=== PATIENT | female | born 1970 | race Caucasian/White ===

== ENCOUNTER 2017-06-28 17:37 | Emergency (ER) | payer OTHER ==
[2017-06-28] MEDS ORDERED: Ketorolac 60 MG/2 ML SDV IM ONE (17:59)
--- NOTE | 2017-06-28 18:05 | EDM.PDOC ---
ED HPI GENERAL MEDICAL PROBLEM - General Chief Complaint: Upper Extremity Injury/Pain Stated Complaint: RIGHT HAND PAIN Time Seen by Provider: 06/28/17 18:00 Source of Information: Reports: Patient History Limitations: Reports: No Limitations - History of Present Illness INITIAL COMMENTS - FREE TEXT/NARRATIVE: HISTORY AND PHYSICAL: [47-year-old female with complaints of right hand pain] History of Present Illness: [Patient presents to the emergency room today with complaints of right hand pain. States that a month ago she was "flinging" her hand up and hit the window , since that time noticed some discomfort but did not bother her enough to be evaluated by a healthcare provider. Today she was moving her hand and hit it again, causing more pain and discomfort with some swelling at the right proximal second and third knuckle. States she has swelling and pressure which she feels discomfort when grasping and radiating up into her forearm, has not taking any iqel-ktc-hiothla products for discomfort. No previous injury to the affected extremity] Review of Systems: As per history of present illness and below otherwise all systems reviewed and negative. Past medical history: As per history of present illness and as reviewed below otherwise noncontributory. Surgical history: As per history of present illness and as reviewed below otherwise noncontributory. Social history: No reported history of drug or alcohol abuse. Family history: As per history of present illness and as reviewed below otherwise noncontributory. Physical exam: Nontoxic appearing 47-year-old female. Speaks in full sentences. His questions appropriately. HEENT: Atraumatic, normocehpalic, pupils reactive, negative for conjunctival pallor or scleral icterus, mucous membranes moist, throat clear, neck supple, nontender, trachea midline. Lungs: Clear to auscultation, breath sounds equal bilaterally, chest non tender. Heart: S1S2, regular, negative for clicks, rubs, or JVD. Abdomen: Soft, nondistended, nontender. Negative for masses or hepatossplenmegaly. Negative for costovertebral tenderness. Pelvis: Stable nontender. Genitourinary: Deferred. Rectal: Deferred Extremities: Redness and swelling noted to the right proximal second and third knuckle. Strong radial pulses bilaterally. Capillary refill less than 3 seconds. Full range of motion of the fingers, wrist, forearm, elbow of the affected extremity. Sensation is intact. Neurovascular unremarkable. Neuro: Awake, alert, oriented. Cranial nerves II through XII unremarkable. Cerebellum unremarkable. Motor and sensory unremarkable throughout. Exam nonfocal. Diagnostics: [X-ray of the right hand] Therapeutics: [60mg Toradol IM] Impression: [Contusion] Plan: []Splint to add protection and stabilize Elevate and ice Gghu-moi-wqdmych NSAIDs today with Tylenol Follow-up with your primary care provider next week if not improving Definitive disposition and diagnosis as appropriate pending reevaluation and review of above. Onset: Sudden, Other (Initial injury occurred one month ago. Reinjured today prior to arrival.) Onset Date: 06/28/17 Location: Reports: Lower Extremity, Right Worsens with: Reports: Movement Associated Symptoms: Reports: No Other Symptoms Right Hand Pain Score (Numeric/FACES): 7 - Related Data Allergies Allergy/AdvReac Type Severity Reaction Status Date / Time No Known Allergies Allergy Verified 06/28/17 17:48 Home Meds: Home Meds ALPRAZolam [Xanax] 0.5 mg PO BID 06/28/17 [History] Amitriptyline [Elavil] 25 mg PO BEDTIME 06/28/17 [History] Levothyroxine 137 mcg PO ACBREAKFAST 06/28/17 [History] Past Medical History HEENT History: Reports: None Cardiovascular History: Reports: None Respiratory History: Reports: None Gastrointestinal History: Reports: None Genitourinary History: Reports: None CONSULTING INTERN History: Reports: None Musculoskeletal History: Reports: None Neurological History: Reports: None Psychiatric History: Reports: None Endocrine/Metabolic History: Reports: None Dermatologic History: Reports: None - Infectious Disease History Infectious Disease History: Reports: Chicken Pox - Past Surgical History HEENT Surgical History: Reports: None Cardiovascular Surgical History: Reports: None Respiratory Surgical History: Reports: None GI Surgical History: Reports: Cholecystectomy Female Surgical History: Reports: Hysterectomy Endocrine Surgical History: Reports: None Neurological Surgical History: Reports: None Musculoskeletal Surgical History: Reports: None Dermatological Surgical History: Reports: None Social & Family History - Tobacco Use Smoking Status *Q: Never Smoker - Caffeine Use Caffeine Use: Reports: Energy Drinks, Tea - Recreational Drug Use Recreational Drug Use: No Review of Systems - Review of Systems Review Of Systems: ROS reveals no pertinent complaints other than HPI. ED EXAM, GENERAL - Physical Exam Exam: See Below (See history of present illness) Course - Vital Signs Last Recorded V/S: Last Vital Signs Temp 36.6 C 06/28/17 17:49 Pulse 98 06/28/17 17:49 Resp 18 06/28/17 17:49 BP 137/84 06/28/17 17:49 Pulse Ox 96 06/28/17 17:49 - Orders/Labs/Meds Orders: Active Orders 24 hr Category Date Time Status Splinting [RC] ASDIRECTED Care 06/28/17 19:27 Ordered Hand 2V Rt [CR] Stat Exams 06/28/17 17:59 Taken Meds: Medications Discontinued Medications Generic Name Dose Route Start Last Admin Trade Name Freq PRN Reason Stop Dose Admin Ketorolac Tromethamine 60 mg 06/28/17 17:59 06/28/17 18:03 Toradol IM 06/28/17 18:00 60 mg ONETIME ONE Administration Departure - Departure Time of Disposition: 19:28 Disposition: Home, Self-Care 01 Condition: Good Clinical Impression: Contusion Qualifiers: Encounter type: initial encounter Contusion area: hand - Discharge Information Instructions: Cast or Splint Care, Gxqd-du-Lozm Forms: ED Department Discharge Additional Instructions: The following information is given to patients seen in the emergency department who are being discharged to home. This information is to outline your options for follow-up care. We provide all patients seen in our emergency department with a follow-up referral. The need for follow-up, as well as the timing and circumstances, are variable depending upon the specifics of your emergency department visit. If you don't have a primary care physician on staff, we will provide you with a referral. We always advise you to contact your personal physician following an emergency department visit to inform them of the circumstance of the visit and for follow-up with them and/or the need for any referrals to a consulting specialist. The emergency department will also refer you to a specialist when appropriate. This referral assures that you have the opportunity for followup care with a specialist. All of these measure are taken in an effort to provide you with optimal care, which includes your followup. Under all circumstances we always encourage you to contact your private physician who remains a resource for coordinating your care. When calling for followup care, please make the office aware that this follow-up is from your recent emergency room visit. If for any reason you are refused follow-up, please contact the [facility] emergency department at and asked to speak to the emergency department charge nurse. Splint has been applied for comfort measures and immobilization Follow-up with your primary care provider next week Alternate ibuprofen and Tylenol for discomfort every 3 hours Any worsening of symptoms please return for further evaluation - My Orders Last 24 Hours: My Active Orders 06/28/17 17:59 Hand 2V Rt [CR] Stat 06/28/17 19:27 Splinting [RC] ASDIRECTED - Assessment/Plan Last 24 Hours: My Active Orders 06/28/17 17:59 Hand 2V Rt [CR] Stat 06/28/17 19:27 Splinting [RC] ASDIRECTED
[2017-06-28 20:04] VITALS: BP 120/67
--- NOTE | 2017-06-29 11:48 | CR ---
EXAM DATE: 06/28/17 PATIENT'S AGE: 47 Patient: SHERLEY FERNANDEZ Facility: [place], [place] Site . Site : [id number] Study: XRay Extremity Hand [id number]/15/2017 6:39:51 PM Ordering Physician: Doctor Mejia Final Report: HISTORY: Injury, swelling. FINDINGS/IMPRESSION: Two views of the right hand demonstrate normal alignment. No fracture or dislocation identified. Dictated by Stefani Anaya MD @ 06/28/2017 7:18:24 PM Dictated by: Stefani Anaya MD @ 06/28/2017 19:18:30 (Electronic Signature) Report Signed by Proxy. [facility]ITATION HOSPITALFelicity
== END 2017-06-28 19:46 | disposition home or self-care (01) ==
LOC: MW.ED 17:37
DX: S60.221A Contusion of right hand, initial encounter (principal); Z90.49 Acquired absence of other specified parts of digestive tract; Z90.710 Acquired absence of both cervix and uterus; W22.8XXA Striking against or struck by other objects, initial encounter
CPT/HCPCS: 29125; 73120; 96372; 99283; J1885

== ENCOUNTER 2021-11-10 14:09 | Emergency (ER) | payer BC, OTHER ==
--- NOTE | 2021-11-10 14:33 | EDM.PDOC ---
ED HPI GENERAL MEDICAL PROBLEM - General Chief Complaint: Lower Extremity Injury/Pain Stated Complaint: INJURY LEFT FOOT Time Seen by Provider: 11/10/21 14:14 Source of Information: Reports: Patient History Limitations: Reports: No Limitations - History of Present Illness INITIAL COMMENTS - FREE TEXT/NARRATIVE: HISTORY AND PHYSICAL: History of present illness: Patient is a 51-year-old female who presents to the emergency room with complaints of left lateral ankle and dorsal foot pain. Patient was getting out of her pickup truck when she slipped on the ice and fell. Does have pain with weightbearing and touch. Did not hit her head or have any loss of consciousness. Denies any other extremity involvement. Offers no systemic complaints. Review of systems: As per history of present illness and below otherwise all systems reviewed and negative. Past medical history: As per history of present illness and as reviewed below otherwise noncontributory. Surgical history: As per history of present illness and as reviewed below otherwise noncontributory. Social history: See social history for further information Family history: As per history of present illness and as reviewed below otherwise noncontributory. Physical exam: General: Well developed and well nourished 51-year-old female. Alert and orientated x 3. Nontoxic in appearance and in no acute distress. Vital signs are stable and have been reviewed by me. Nursing notes were reviewed. HEENT: Atraumatic, normocephalic, pupils equal and reactive bilaterally, negative for conjunctival pallor or scleral icterus, mucous membranes moist, TMs normal bilaterally, throat clear, neck supple, nontender, trachea midline. No drooling or trismus noted. No meningeal signs. No hot potato voice noted. Lungs: Clear to auscultation bilaterally. No wheezes, rales, or rhonchi. Chest nontender. Normal work of breathing, no accessory muscles used. Heart: S1S2, regular rate and rhythm without overt murmur, gallops, or rubs. No JVD. No peripheral edema Abdomen: Soft, nondistended, nontender. C-spine/Back: No pinpoint vertebral tenderness upon palpation. No crepitus, step-offs or obvious deformities. Patient is ambulatory into the emergency room without difficulty or deficit. Able to rock back on heels and walk on toes. Denies any urinary or fecal incontinence. Denies any numbness, tingling or saddle paresthesia. No concerns of serious infection, fracture or cord compression, or cauda equina syndrome. Deep tendon reflexes brisk bilaterally. Skin: Intact, warm, dry. No lesions or rashes noted. Hematologic: No petechiae or purpra. Mucosa appropriate color and normal nail bed color and refill. Extremities: Pain with palpation of the left lateral malleolus with soft tissue swelling extending into the anterior dorsal foot. Strong pedal and pretibial pulse. Moves all extremities per self without difficulty or deficits, negative for cords or calf pain. Cap refill less than 3 seconds. +CMS. Neurovascular unremarkable. Neuro: Awake, alert, oriented. Cranial nerves II through XII unremarkable. Cerebellum unremarkable. Motor and sensory unremarkable throughout. Exam nonfocal. Psychiatric: Mood and affect are appropriate. Normal thought process. Answering questions appropriately. Please note that the patient was seen and evaluated during the 2019 SARS-CoV-2 novel coronavirus pandemic period. Community viral transmission is ongoing at time of this encounter and the emergency department is operating under pandemic response procedures. Medical Decision Making: Patient is a 51-year-old female who presents to the emergency room with complaints of left foot and ankle pain post fall. She does have tenderness of the left lateral malleolus with mild soft tissue swelling. Patient has strong pedal pulses with good CMS and range of motion. We will obtain an x-ray. Suspected small avulsion fracture fragment along the lateral and posterior aspect of the cuboid with adjacent soft tissue swelling. Patient placed in a cam walker boot and provided with crutches. Patient to wear this until she is able to follow-up with the spring internship in the next week. I have talked with the patient about today's findings, in addition to providing specific details for plan of care. Reassessment at the time of disposition demonstrates that the patient is in no acute distress. Patient given Dr. Handley's foot and ankle clinic phone number for close follow-up. The patient is stable for discharge, counseling was provided and we discussed in great detail signs and symptoms that would prompt them to return to the Emergency Department. Medication, follow up and supportive care measures were reviewed and discussed. Voices understanding and is agreeable to plan of care. Denies any further questions or concerns at this time. Diagnostics: X-ray Therapeutics: CAM Walker boot and crutches Prescription: [place] No. 20 Impression: Cuboid fracture, left Plan: 1. You were evaluated today on an emergent basis. Your x-ray shows a small avulsion fracture of the cubiod bone. Rest, ice, elevate the extremity as able. Use the crutches and CAM walker boot to be nonweightbearing until you follow up with podiatry. 2. You can alternate Tylenol and ibuprofen as needed for pain and fever management. [place] for moderate to severe pain. This medication may cause drowsiness so do not take it while driving or needing to be functioning outside of the house. 3. We encourage you to follow up with your primary care provider and/or recommended specialist in the next few days for re-evaluation and further care/management. 4. If your symptoms should worsen, new symptoms develop or any of the signs and symptoms we discussed should arise please return to the emergency room or call 911 (if needed). Definitive disposition and diagnosis as appropriate pending reevaluation and review of above. Left Ankle Pain Score (Numeric/FACES): 9 - Related Data Allergies Allergy/AdvReac Type Severity Reaction Status Date / Time meloxicam Allergy Facial Verified 11/10/21 14:20 Swelling Home Meds: Home Meds ALPRAZolam [Xanax] 0.5 mg PO BID 06/28/17 [History] Levothyroxine 137 mcg PO ACBREAKFAST 06/28/17 [History] Celecoxib [CeleBREX] 100 mg PO DAILY 11/10/21 [History] FLUoxetine [PROzac] 40 mg PO DAILY 11/10/21 [History] Gabapentin [Neurontin] 300 mg PO DAILY 11/10/21 [History] Hydrocodone/Acetaminophen [HYDROcodone-Acetaminophen 5-325 MG] 1 - 2 tab PO Q4HR PRN #20 tablet 11/10/21 [Rx] Past Medical History HEENT History: Reports: None Cardiovascular History: Reports: None Respiratory History: Reports: None Gastrointestinal History: Reports: None Genitourinary History: Reports: None MEDICAL STAFF SERVICES COORDINATOR History: Reports: None Musculoskeletal History: Reports: None Neurological History: Reports: None Psychiatric History: Reports: None Endocrine/Metabolic History: Reports: None Dermatologic History: Reports: None - Infectious Disease History Infectious Disease History: Reports: Chicken Pox - Past Surgical History HEENT Surgical History: Reports: None Cardiovascular Surgical History: Reports: None Respiratory Surgical History: Reports: None GI Surgical History: Reports: Cholecystectomy Female Surgical History: Reports: Hysterectomy Endocrine Surgical History: Reports: None Neurological Surgical History: Reports: None Musculoskeletal Surgical History: Reports: None Dermatological Surgical History: Reports: None Social & Family History - Family History Family Medical History: No Pertinent Family History - Tobacco Use Tobacco Use Status *Q: Current Every Day Tobacco User Years of Tobacco use: 2 Packs/Tins Daily: 0.1 - Caffeine Use Caffeine Use: Reports: Energy Drinks - Recreational Drug Use Recreational Drug Use: No Review of Systems - Review of Systems Review Of Systems: Comprehensive ROS is negative, except as noted in HPI. ED EXAM, GENERAL - Physical Exam Exam: See Below (See dictation) Course - Vital Signs Last Recorded V/S: Last Vital Signs Temp 97.1 F 11/10/21 14:21 Pulse 83 11/10/21 15:28 Resp 16 11/10/21 15:28 BP 127/60 11/10/21 15:28 Pulse Ox 100 11/10/21 15:28 - Orders/Labs/Meds Orders: Active Orders 24 hr Category Date Time Status DME for Discharge [COMM] Stat Oth 11/10/21 15:40 Ordered Departure - Departure Time of Disposition: 15:38 Disposition: Home, W [facility] Health Agency 06 Clinical Impression: Cuboid fracture Qualifiers: Encounter type: initial encounter Fracture type: closed Fracture alignment: displaced Laterality: left Qualified Code(s): S92.212A - Displaced fracture of cuboid bone of left foot, initial encounter for closed fracture - Discharge Information Prescriptions: Hydrocodone/Acetaminophen [HYDROcodone-Acetaminophen 5-325 MG] 1 - 2 tab PO Q4HR PRN #20 tablet PRN Reason: Pain (Moderate 4-6) Instructions: Tarsal Fracture Forms: ED Department Discharge Additional Instructions: The following information is given to patients seen in the emergency department who are being discharged to home. This information is to outline your options for follow-up care. We provide all patients seen in our emergency department with a follow-up referral. The need for follow-up, as well as the timing and circumstances, are variable depending upon the specifics of your emergency department visit. If you don't have a primary care physician on staff, we will provide you with a referral. We always advise you to contact your personal physician following an emergency department visit to inform them of the circumstance of the visit and for follow-up with them and/or the need for any referrals to a consulting specialist. The emergency department will also refer you to a specialist when appropriate. This referral assures that you have the opportunity for follow-up care with a specialist. All of these measure are taken in an effort to provide you with optimal care, which includes your follow-up. Under all circumstances we always encourage you to contact your private physician who remains a resource for coordinating your care. When calling for follow-up care, please make the office aware that this follow-up is from your recent emergency room visit. If for any reason you are refused follow-up, please contact the [facility] Emergency Department at and asked to speak to the emergency department charge nurse. Dr Donnell Handley (PODIATRY) [address] [place] [address] Thank you for choosing the [facility] emergency department in [place] for your medical needs today. It was a pleasure caring for you. Today you were seen in the emergency department for foot and ankle pain. Your prescription was electronically sent to: [facility] Medication/Directions: [place], 1-2 tabs every 6 hours as needed for pain management. This medication may cause drowsiness so do not take it while driving or needing to be functioning outside of the house. 1. You were evaluated today on an emergent basis. Your x-ray shows a small avulsion fracture of the cubiod bone. Rest, ice, elevate the extremity as able. Use the crutches and CAM walker boot to be nonweightbearing until you follow up with podiatry. 2. You can alternate Tylenol and ibuprofen as needed for pain and fever management. [place] for moderate to severe pain. This medication may cause drowsiness so do not take it while driving or needing to be functioning outside of the house. 3. We encourage you to follow up with your primary care provider and/or rec ommended specialist in the next few days for re-evaluation and further care/management. 4. If your symptoms should worsen, new symptoms develop or any of the signs and symptoms we discussed should arise please return to the emergency room or call 911 (if needed). Sepsis Event Note (ED) - Evaluation Sepsis Screening Result: No Definite Risk - Focused Exam Vital Signs: Vital Signs Temp Pulse Resp BP Pulse Ox 11/10/21 15:28 83 16 127/60 100 11/10/21 14:21 97.1 F 81 20 148/66 H 100 - My Orders Last 24 Hours: My Active Orders 11/10/21 15:40 DME for Discharge [COMM] Stat - Assessment/Plan Last 24 Hours: My Active Orders 11/10/21 15:40 DME for Discharge [COMM] Stat
--- NOTE | 2021-11-10 15:30 | CR ---
Indication: Fell on ice. Technique: Left ankle 3 views. Comparison: None. Findings: There is a suspected small avulsion fracture fragment along the lateral and posterior aspect of the cuboid with adjacent soft tissue swelling. No other fracture identified. Ankle mortise is intact. Plantar calcaneal spur. Small Achilles tendon enthesophytes. Impression: Suspected small avulsion fracture fragment along the lateral and posterior aspect of the cuboid with adjacent soft tissue swelling. Dictated by Leila Gay MD @ 11/10/2021 3:29:39 PM (Electronically Signed)
--- NOTE | 2021-11-10 15:32 | CR ---
Indication: Slipped on ice today. Pain and swelling. Technique: Left foot 2 views. Comparison: None. Findings: There is a small osseous density along the posterolateral aspect of the cuboid suspicious for an avulsion fracture fragment. No other fracture identified. No dislocation. Mild degenerative changes of the 1st MTP joint. Plantar calcaneal spur. Soft tissue swelling along the anterior aspect of the ankle. Impression: Suspected small avulsion fracture fragment along the posterolateral aspect of the cuboid. Dictated by Leila Gay MD @ 11/10/2021 3:31:56 PM (Electronically Signed)
[2021-11-10 21:43] VITALS: BP 131/78; PULSE 91
== END 2021-11-10 16:23 | disposition home health service (06) ==
LOC: MW.ED 14:09
DX: S92.212A Displaced fracture of cuboid bone of left foot, initial encounter for closed fracture (principal); Z88.8 Allergy status to other drugs, medicaments and biological substances; Z72.0 Tobacco use; Z79.899 Other long term (current) drug therapy; W00.0XXA Fall on same level due to ice and snow, initial encounter
CPT/HCPCS: 73610-26-LT; 73610-LT; 73620-26-LT; 73620-LT; 99283-25

== ENCOUNTER 2023-12-13 09:45 | Emergency (ER) | payer BC ==
[2023-12-13] MEDS ORDERED: Ibuprofen 800 MG Tab PO ONE (11:04)
[2023-12-13 12:04] VITALS: BP 159/68; PULSE 82
== END 2023-12-13 12:03 | disposition home or self-care (01) ==
LOC: MW.ED 09:45
DX: S82.892A Other fracture of left lower leg, initial encounter for closed fracture (principal); Z88.8 Allergy status to other drugs, medicaments and biological substances; Z79.899 Other long term (current) drug therapy; Z90.49 Acquired absence of other specified parts of digestive tract; X50.1XXA Overexertion from prolonged static or awkward postures, initial encounter
CPT/HCPCS: 73610; 73630; 99283; A9270

== ENCOUNTER 2024-08-01 17:02 | Emergency (ER) | payer BC ==
[2024-08-01] MEDS ORDERED: Sodium Chloride 0.9% 2.5 ML Syringe FLUSH PRN (17:05)
[2024-08-01] MEDS ORDERED: Sodium Chloride 0.9% 10 ML Syringe FLUSH PRN (17:05)
[2024-08-01 17:07] VITALS: PULSE 79
[2024-08-01 17:17] LABS: BASOPHILS ABSOLUTE AUTO 0.08 K/uL (0.00-0.20); BASOPHILS PERCENT AUTO 0.6 % (0.0-1.0); EOSINOPHILS ABSOLUTE AUTO 0.46 K/uL (0.00-0.45); EOSINOPHILS PERCENT AUTO 3.7 % (0.0-6.0); HEMOGLOBIN 12.7 g/dL (12.0-16.0); IMMATURE GRAN ABSOLUTE AUTO 0.05 K/uL (0.00-0.05); IMMATURE GRAN PERCENT AUTO 0.4 % (0.0-0.4); LYMPHOCYTES ABSOLUTE AUTO 3.27 K/uL (1.00-4.80); LYMPHOCYTES PERCENT AUTO 26.3 % (24.0-44.0); MEAN CORPUSCULAR HEMOGLOBIN 29.1 pg (28.0-32.0); MEAN CORPUSCULAR HGB CONC 33.4 g/dL (32.0-36.0); MEAN PLATELET VOLUME 10.3 fL (9.4-12.3); MONOCYTES ABSOLUTE AUTO 0.89 K/uL (0.00-0.80); MONOCYTES PERCENT AUTO 7.1 % (0.0-8.0); NEUTROPHILS PERCENT AUTO 61.9 % (41.0-71.0); PLATELET COUNT,PLT 324 K/uL (150-400); RED BLOOD CELL COUNT 4.37 M/uL (4.10-5.30); WHITE BLOOD CELL COUNT,WBC 12.45 K/uL (3.9-11.3)
[2024-08-01] MEDS: Ondansetron 4 MG/2 ML SDV IVPUSH STA (17:40)
[2024-08-01] MEDS: Aspirin 81 MG Tab.Chew PO STA (17:41)
[2024-08-01 17:47] LABS: BILIRUBIN,URINE NEGATIVE (NEGATIVE); COLOR,URINE YELLOW; GLUCOSE,URINE NEGATIVE (NEGATIVE); KETONES,URINE NEGATIVE (NEGATIVE); LEUKOCYTE ESTERASE,URINE NEGATIVE (NEGATIVE); NITRITE,URINE NEGATIVE (NEGATIVE); OCCULT BLOOD,URINE NEGATIVE (NEGATIVE); PROTEIN,URINE NEGATIVE (NEGATIVE); UROBILINOGEN,URINE 0.2 EU/dL (<2.0)
[2024-08-01 17:53] LABS: APPEARANCE,URINE HAZY
[2024-08-01 17:55] LABS: A/G RATIO 0.9 (0.9-1.6); ALBUMIN 3.2 g/dL (3.4-5.0); BILIRUBIN TOTAL 0.2 mg/dL (0.2-1.0); CARBON DIOXIDE,CO2 29.7 mmol/L (21.0-32.0); CREATININE 1.1 mg/dL (0.6-1.0); EST CRCL DRUG DOSING (CG) 53.83 mL/min; PROTEIN TOTAL,TP 6.6 g/dL (6.4-8.2)
[2024-08-01 19:56] VITALS: BP 135/55
== END 2024-08-01 19:56 | disposition home or self-care (01) ==
LOC: MW.ED 17:02
DX: I44.7 Left bundle-branch block, unspecified (principal); E03.9 Hypothyroidism, unspecified; Z90.49 Acquired absence of other specified parts of digestive tract; Z90.710 Acquired absence of both cervix and uterus; Z79.890 Hormone replacement therapy; Z79.899 Other long term (current) drug therapy; Z88.6 Allergy status to analgesic agent; Z75.8 Other problems related to medical facilities and other health care; Z79.1 Long term (current) use of non-steroidal anti-inflammatories (NSAID)
CPT/HCPCS: 36415; 71045; 80053; 81003; 83690; 84484; 85025; 93005; 96374; 99285; A9270; J2405; 93010